=== PATIENT | male | born 1945 | race Caucasian/White ===

== ENCOUNTER 2017-05-27 07:18 | Day surgery (SDC) ==
[2017-05-27] MEDS: TETRACAINE 0.5% UNIT-DOSE OP PRN ×2 (07:36→09:16)
[2017-05-27] MEDS: BETADINE OPTH PREP OP PRN ×2 (07:37→09:16)
[2017-05-27] MEDS: CYCLOGYL 2% OPTH OP PRN ×3 (07:38→07:48)
[2017-05-27 07:47] VITALS: BP 148/73; TEMP 98
[2017-05-27] MEDS ORDERED: LIDOCAINE 1% 20 ML MDV ID STA (08:24)
[2017-05-27] MEDS ORDERED: LIDOCAINE 1%/PHENYLEPHRINE 1.5% BSS (SURGERY) INTRAOCULA ONE (08:24)
[2017-05-27] MEDS ORDERED: BRIMONIDINE TARTRATE 0.2% OPTH SOL OP PRN (08:24)
[2017-05-27] MEDS ORDERED: AK-DILATE 10% OPTH SOL OP PRN (08:24)
[2017-05-27] MEDS ORDERED: ZOFRAN 4 MG/2 ML IVP ONE (08:24)
[2017-05-27] MEDS ORDERED: DEX-MOXI-KETOR OPTH INJ 1/0.5/0.4 MG/ML IO ONE (08:24)
[2017-05-27] MEDS ORDERED: NIRAVAM ODT (SURGERY) PO PRN (08:24)
[2017-05-27] MEDS ORDERED: BSS WITH EPINEPHRINE OP SCH (09:00)
[2017-05-27] MEDS ORDERED: DIPRIVAN 20 ML VIAL IVP ONE (09:15)
[2017-05-27] MEDS ORDERED: VERSED ONE (09:15)
[2017-05-27] MEDS ORDERED: SUBLIMAZE ONE (09:15)
== END 2017-05-27 10:10 | disposition home or self-care (01) ==
LOC: SURG 07:18
PROVIDERS: ATTEND Ophthalmology
DX: H25.12 Age-related nuclear cataract, left eye (principal)